=== PATIENT | male | born 1985 | race Caucasian/White ===

== ENCOUNTER 2024-08-07 20:34 | Emergency (ER) | payer OTHER ==
[~2024-08-07] VITALS: Ht 185.4 cm; Wt 74.6 kg
[2024-08-07 20:48] VITALS: BP 130/85; PULSE 84; TEMP 99.4; O2SAT 99
[2024-08-07] MEDS ORDERED: AMOX500C2 PO (21:49)
[2024-08-07] MEDS: amoxicillin 250mg capsule PO ONE (21:56)
[2024-08-07 21:57] VITALS: RESP 16
== END 2024-08-07 21:59 | disposition home or self-care (01) ==
LOC: ER 20:35
DX: K08.89 Other specified disorders of teeth and supporting structures (principal); K04.7 Periapical abscess without sinus; K02.9 Dental caries, unspecified; R11.10 Vomiting, unspecified
CPT/HCPCS: 99283